=== PATIENT | male | born 1970 | race Caucasian/White ===

== ENCOUNTER 2016-11-13 04:50 | Emergency (ER) | payer MEDICAID ==
[2014-10-31 07:03] VITALS: BMI 26.5
[~2016-11-13 04:50] MED LIST: ALBUTEROL0.63 MG/3 INH; HYDROCODONE-APA1 TAB PO; PROAIR HFA8.5 GM INH; TESTOSTERON200 MG/ML
== END 2016-11-13 05:30 | disposition home or self-care (01) ==
LOC: D.ER 04:50
DX: M54.2 Cervicalgia (principal)

== ENCOUNTER 2017-01-19 10:02 | Emergency (ER) | payer MEDICAID ==
[2014-10-31 07:03] VITALS: BMI 26.5
== END 2017-01-19 10:53 | disposition home or self-care (01) ==
LOC: D.ER 10:02
DX: M54.2 Cervicalgia (principal); G89.29 Other chronic pain

== ENCOUNTER 2017-04-22 08:47 | Emergency (ER) | payer MEDICAID ==
[2014-10-31 07:03] VITALS: BMI 26.5
== END 2017-04-22 10:59 | disposition home or self-care (01) ==
LOC: D.ER 08:47
DX: M54.2 Cervicalgia (principal); F17.200 Nicotine dependence, unspecified, uncomplicated